=== PATIENT | female | born 1960 | race Caucasian/White ===

== ENCOUNTER → 2017-03-10 | Outpatient (CLI) | payer BC ==
[~2017-03-10] MED LIST: IBUP-1027 PO; IOHEXOL 180 MG/ML 10 ML VIAL. ONE; methylPREDNISolone ACETATE 40 MG/ML VIAL. ONE; methylPREDNISolone ACETATE 80 MG/ML VIAL. ONE
--- NOTE | 2017-03-10 16:22 | PAIN ---
DATE OF SERVICE: 03/10/2017 PROGRESS NOTE FOR PAIN CLINIC CHIEF COMPLAINT: Low back and right lower extremity pain. HISTORY OF PRESENT ILLNESS: The patient is a 56-year-old female who presents with history of pain since 07/2016, gradually increasing, not a result of any specific injury or action that she is aware of. She was getting better, but over the weekend in December, she stepped in a hole was full of water and eduardo her right leg significantly, she has had significant pain in the low back radiating to the posterior gluteus, posterior thigh, posterior calf and lateral and anterior thigh as well. Since that time the patient did do physical therapy, which made the pain worse. She tried some chiropractic treatment, which helped decrease the pain, but only to about 10%. The patient reports it is tingling with numbness and radiation in the area of the right leg. It is constant, burning, aching and cramping and also has some cold sensations in the right leg. Left leg is doing well, some minor tenderness in the gluteus, but not into the lower extremity. The patient reports numb toes on the left side from previous surgery. The patient reports it awakens her from sleep 2-3 times at night, does not affect her bowel or bladder control, but does affect her ability to walk as she goes ____ about 50 yards or so. The patient is not using any assistive devices to ambulate; however. The patient did have MRI scan of lumbar spine showing moderate multilevel lumbar facet arthrosis. No significant central stenosis, very mild neuroforaminal narrowing present at L5-S1 bilaterally. The patient rates her disability rating from 0-10, 10 being the worst as a 6 with family and home responsibilities and social activity, 9 with recreation, 4 with occupation, and 8 with life support activities. The patient is taking hydrocodone as well as ibuprofen, ibuprofen helps somewhat, but hydrocodone did not. The patient reports no loss of motor function, significant fatigability, however, with the right lower extremity with ambulation. PAST MEDICAL HISTORY: Significant for cataracts, ectopic , and arthritis. PREVIOUS SURGERY: Previous lumbar surgery in 2008. Other surgeries include and wisdom teeth extraction, and ectopic removal. CURRENT MEDICATIONS: Include [id number] ibuprofen 400 mg q.6 hours. ALLERGIES: The patient has no known drug allergies. FAMILY HISTORY: Significant for no major medical problems or conditions that she is aware of. SOCIAL HISTORY: The patient does not smoke, she does not use alcohol. 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 REVIEW OF SYSTEMS: The patient's review of systems is positive for those items mentioned in the history of present illness. It is complete, full. All systems reviewed and otherwise negative and is well documented on the patient's chart. PHYSICAL EXAMINATION: VITAL SIGNS: Today the patient's blood pressure is 144/87, pulse 62, respirations 16, temperature 97.9 degrees Fahrenheit, height is 5 feet 8 inches, and weight is 180 pounds. GENERAL: The patient is awake, alert, oriented, appropriate, very pleasant demeanor. HEENT: Head shows normocephalic, atraumatic. Extraocular movements are intact and symmetrical. Oral cavity shows mucous membranes are moist and pink. Dentition is intact. NECK: Shows anterior throat supple without palpable lymphadenopathy noted. Swallow reflex is symmetrical. Neck shows full rotational motion of cervical spine without tenderness or difficulty. CHEST: Shows normal on inspection. Breath sounds are clear to auscultation bilaterally. HEART: Shows S1 and S2 clear. ABDOMEN: Soft, nontender, and nondistended. No palpable organomegaly. No rebound or guarding demonstrated. BACK: Shows spine grossly in the midline. Normal appearing thoracic kyphosis, lumbar lordotic curvature. Very small surgical scars noted in the lumbar distribution to the left of midline, paraspinous musculature is symmetrical on inspection with palpation shows some very mild tenderness in the low lumbar distribution bilaterally, but without asymmetry, atrophy, or hypertrophy. No tenderness over the spinous processes, sacrum or sacroiliac regions. The patient shows good rotation and motion both laterally greater than 10 degrees right and left as well as extension greater than 10 degrees, forward flexion 45 degrees without pain reported. LOWER EXTREMITIES: Show deep tendon reflexes 2+ in the patella, 1+ tendo-calcaneus tendons are equal. Motor exam is strong with 5/5 dorsiflexion, extension, quadriceps, and hamstring flexion. Peripheral pulses are 2+ posterior tibial and dorsalis pedis pulses. No peripheral edema is noted. No clubbing, no cyanosis. Lower extremities are warm and dry to touch, equal in color and appearance. The patient's straight leg raise noted to be mildly positive on the right at about 40 degrees, decreased with knee flexion, left side is negative. Gaenslen's and Tyler's maneuvers are negative bilaterally. The patient is able to stand, stand on her toes without difficulty or loss of balance, walking with a normal appearing gait for short distance in the office, not using any assistive devices. IMPRESSION: 1. This is a 56-year-old female with approximate 6-month history of low back, right lower extremity pain, worse over the past 3 months. 2. MRI scan as noted. 3. History of arthritis. PLAN: Options were discussed with the patient including conservative medical management, physical therapy, interventional techniques and she has done physical therapy and chiropractic already with limited improvement with medications. We discussed a lumbar epidural steroid injection using description as well as anatomical models to describe the procedure. Risks were discussed including but not limited to bleeding, infection, possibility of epidural hematoma, and subsequent neurologic compromise, dural puncture, headaches, spinal cord and/or nerve damage, side effects of steroid medication, and poor results regarding pain control. The patient understands and wishes to proceed. The patient will return to clinic in approximately 2 weeks for followup. She was counseled on return appointment, activity level and side effects to be aware of. DIAGNOSES: Lumbar radiculopathy with lumbar spondylosis, degenerative disk disease and post-laminectomy syndrome. PROCEDURE: Lumbar epidural steroid injection in translaminar approach at L4-5 level using C-arm fluoroscopic guidance under sterile prep and drape using local anesthetic. Medication injected is a total of 120 mg Depo-Medrol plus 10 mL of preservative-free normal saline and 2 mL of Isovue for contrast. CONDITION AT DISCHARGE: Stable. The patient tolerated the procedure well and had no complications. JORGE PORTILLO MD DR: DARRYN/ghanshyam JOB#: [id number] / [id number]
== END | disposition home or self-care (01) ==
LOC: PNCL 08:06
PROVIDERS: ATTEND Anesthesiology
DX: M51.16 Intervertebral disc disorders with radiculopathy, lumbar region (principal); M47.26 Other spondylosis with radiculopathy, lumbar region; M96.1 Postlaminectomy syndrome, not elsewhere classified; M19.90 Unspecified osteoarthritis, unspecified site
CPT/HCPCS: 62323; J1030; J1040

== ENCOUNTER → 2017-03-25 | Outpatient (CLI) | payer BC ==
--- NOTE | 2017-03-25 09:59 | PAIN ---
DATE OF SERVICE: 03/25/2017 PROGRESS NOTE FOR PAIN CLINIC DIAGNOSES: Lumbar radiculopathy with lumbar spondylosis, degenerative disk disease and post-lumbar laminectomy syndrome. HISTORY OF PRESENT ILLNESS: The patient is a 56-year-old female who returns for followup status post lumbar epidural steroid injection x 1. The patient reports about 50% improvement after the first injection, still pain in low back and right lower extremity with some numbness in the right foot, also some numbness in the left foot, but much less severe. The patient reports the pain as 8 on a scale of 10 at its worst, currently 2, average is about 5. The patient reports a sharp, dull, tight, shooting, cramping, tingling, burning on and off pain, not completely present at all times. The patient reports it does awaken her from sleep. She sleeps up to 3-4 hours a night, has to reposition and she gets back to sleep after that. The patient reports no new motor or sensory deficits, no new bowel or bladder incontinence reported. PHYSICAL EXAMINATION: VITAL SIGNS: The patient's blood pressure is 139/85, pulse 63, respirations 18, temperature 98.2 degrees Fahrenheit, height is 5 feet 8 inches, weighs 180 pounds. GENERAL: The patient is awake, alert, oriented, appropriate, very pleasant demeanor. HEENT: Head shows normocephalic, atraumatic. Extraocular movements are intact and symmetrical. Oral cavity, mucous membranes are moist and pink. Dentition is intact. NECK: Shows anterior throat is supple without palpable lymphadenopathy noted. CHEST: Shows normal on inspection. Breath sounds are clear to auscultation bilaterally. HEART: Shows S1 and S2 clear. No murmurs auscultated. ABDOMEN: Soft, nontender, nondistended. No palpable organomegaly. No rebound or guarding demonstrated. BACK: Shows spine grossly midline, small well-healed surgical scar is noted in the lumbar distribution. Lumbar paraspinous musculature shows some moderate tenderness with palpation, but is symmetrical on inspection, only diffusely tender without radiation. Good rotational motion both laterally as well as extension and flexion. EXTREMITIES: Lower extremities showed deep tendon reflexes at 2+ in the patellar, 1+ tendo calcaneus tendons. Motor exam is strong with 5/5 dorsiflexion and extension bilaterally. Options were discussed with the patient and the patient's old chart was reviewed as her current medication regimen updated. Current review of systems updated today as well. We will proceed with a second lumbar epidural steroid injection with fluoroscopic guidance. Risks were again discussed including, but not limited to bleeding, infection, possibility of epidural hematoma, subsequent neurologic compromise, dural puncture, headaches, spinal cord and/or nerve damage, side effects of steroid medication and poor results regarding pain control. The patient understands and wishes to proceed. The patient will return to clinic in approximately 2 weeks for followup, was counseled on return appointment, activity level and side effects to be aware of. DIAGNOSIS: Lumbar radiculopathy with lumbar degenerative disk disease, post-lumbar laminectomy syndrome and lumbar spondylosis. PROCEDURE: Lumbar epidural steroid injection in translaminar approach at the L4-L5 level using C-arm fluoroscopic guidance under sterile prep and drape using local anesthetic. MEDICATION INJECTED: A total of 120 mg Depo-Medrol plus 10 mL of preservative-free normal saline and 2 mL of Isovue for contrast. CONDITION AT DISCHARGE: Stable. The patient tolerated procedure well, had no complications. JORGE PORTILLO MD DR: DARRYN/ghanshyam JOB#: [id number] / [id number]
== END | disposition home or self-care (01) ==
LOC: PNCL 07:51
PROVIDERS: ATTEND Anesthesiology
DX: M51.16 Intervertebral disc disorders with radiculopathy, lumbar region (principal); M47.26 Other spondylosis with radiculopathy, lumbar region; M96.1 Postlaminectomy syndrome, not elsewhere classified
CPT/HCPCS: 62323; J1030; J1040

== ENCOUNTER → 2017-05-07 | Outpatient (CLI) | payer BC ==
[~2017-05-07] MED LIST changes: +LIDOCAINE 2% VISCOUS 15 ML SOLUTION. ONE
--- NOTE | 2017-05-07 11:44 | PAIN ---
DATE OF SERVICE: 05/07/2017 DIAGNOSES: Lumbar radiculopathy with lumbar degenerative disk disease, spondylosis and post-lumbar laminectomy syndrome. HISTORY OF PRESENT ILLNESS: The patient is a 56-year-old female who returns for followup status post lumbar epidural steroid injection x 2. The patient reports about 60% improvement overall in the low back and right lower extremity pain, but still some pain in the right leg, worse with walking, lifting, bending and flexing. The patient reports it awakens her from sleep about 2-3 times at night. She needs to reposition to get back to sleep. The patient reports the pain is 8 on a scale of 10 at its worst, 6 on average The patient reports it as aching type, tingling, burning, cramping and constant, becoming more constant with time. The patient reports no new motor or sensory deficits, no new bowel or bladder incontinence, still worse with walking, standing, again lifting and bending and flexing at the waist. PHYSICAL EXAMINATION: VITAL SIGNS: The patient's blood pressure 118/77, pulse 61, respirations 16, temperature is 98.2 degrees Fahrenheit, height is 5 feet 8 inches, weight is 183 pounds. GENERAL: The patient is awake, alert, oriented, appropriate, very pleasant demeanor. HEENT: Head shows normocephalic, atraumatic. Extraocular movements are intact and symmetrical. Oral cavity: Mucous membranes moist and pink. NECK: Shows anterior throat supple without palpable lymphadenopathy noted. Swallow reflex is symmetrical. CHEST: Shows normal on inspection. Breath sounds are clear to auscultation bilaterally. HEART: Shows S1 and S2 clear. No murmurs are auscultated. ABDOMEN: Soft, nontender, nondistended. BACK: Shows spine grossly in the midline. Small well-healed surgical scars noted in the lumbar distribution, but with essentially normal lumbar lordotic curvature and lumbar paraspinous musculature shows symmetrical on inspection, with palpation shows some moderate tenderness to palpation, but only diffusely bilaterally in the lower lumbar distribution without radiation. The patient shows good rotational motion both laterally as well as extension and flexion of lumbar spine without difficulty. EXTREMITIES: Lower extremities showed deep tendon reflexes 2+ in the patellar, 1+ tendo-calcaneus tendons, equal. Motor exam is strong with 5/5 dorsiflexion, extension, quadriceps and hamstring flexion and symmetrical. Peripheral pulses are 1+ posterior tibial and dorsalis pedis pulses. No peripheral edema is noted bilaterally. Options were discussed with the patient, and the patient's old chart was reviewed as her current medication regimen updated. Current review of systems updated today as well. We will proceed with a third in the series of lumbar epidural steroid injection with fluoroscopic guidance. Risks were again discussed including, but not limited to bleeding, infection, possibility of epidural hematoma and subsequent neurological compromise, dural puncture, headaches, spinal cord and/or nerve damage, side effects of steroid medication and poor results regarding pain control. The patient understands and wishes to proceed. The patient will return to clinic in approximately 2 weeks for followup or as needed. This will be the third injection in a series of 3. We will have her follow up with her neurosurgeon as well as she requested prior to her first injection. The patient was counseled as to activity levels as well as side effects to be aware of, will increase activity as tolerated. DIAGNOSES: Lumbar radiculopathy with lumbar degenerative disk disease, spondylosis, post-lumbar laminectomy syndrome. PROCEDURES: Lumbar epidural steroid injection in translaminar approach at L4-L5 level using C-arm fluoroscopic guidance under sterile prep and drape using local anesthetic. MEDICATION INJECTED: A total of 120 mg Depo-Medrol, plus 10 mL of preservative-free normal saline and 2 mL of Isovue for contrast. CONDITION AT DISCHARGE: Stable. The patient tolerated procedure well, had no complications. JORGE PORTILLO MD DR: DARRYN/ghanshyam JOB#: [id number] / [id number]
== END | disposition home or self-care (01) ==
LOC: PNCL 08:24
PROVIDERS: ATTEND Anesthesiology
DX: M51.16 Intervertebral disc disorders with radiculopathy, lumbar region (principal); M47.26 Other spondylosis with radiculopathy, lumbar region
CPT/HCPCS: 62323; J1030; J1040

== ENCOUNTER → 2017-06-20 | Outpatient (CLI) | payer BC ==
[~2017-06-20] MED LIST changes: -IOHEXOL 180 MG/ML 10 ML VIAL. ONE; -LIDOCAINE 2% VISCOUS 15 ML SOLUTION. ONE; +METH-38 PO; +METH4TAB2 PO; +OXYC-323 PO; +SENN1TAB7 PO; -methylPREDNISolone ACETATE 40 MG/ML VIAL. ONE; -methylPREDNISolone ACETATE 80 MG/ML VIAL. ONE
== END | disposition home or self-care (01) ==
LOC: SURGPAT 12:43
PROVIDERS: ATTEND Neurological Surgery
DX: Z01.818 Encounter for other preprocedural examination (principal)
CPT/HCPCS: 36415; 87641

== ENCOUNTER 2017-06-24 09:13 | Observation (INO) | payer BC ==
[~2017-06-24] VITALS: Ht 172.7 cm; Wt 83.0 kg
[2017-06-24] VITALS (9 sets, daily range): BP systolic 104–122; BP diastolic 57–82
[~2017-06-24 09:13] MED LIST changes: +BUPIVACAINE MPF 0.5% 30 ML VIAL. ONE; +GELATIN SPONGE SIZE 100. ONE; +IV RINGERS,LACTATED 1000ML 1,000 ML IV SCH; +LIDOCAINE 1% PF 2 ML VIAL. ID PRN; +LIDOCAINE 1%/EPI 1:100,000 20 ML VIAL. ONE; -METH-38 PO; -METH4TAB2 PO; +ONDANSETRON PF 4 MG/2 ML VIAL. IV PRN; -OXYC-323 PO; +PROCHLORPERAZINE 10 MG/2 ML VIAL. IV PRN; -SENN1TAB7 PO; +THROMBIN TOPICAL 20,000 UNIT SPRAY.SYRN KIT TP ONE; +fentaNYL PF VIAL 100 MCG/2 ML VIAL IV PRN
[2017-06-24] MEDS ORDERED: ceFAZolin 2GM PREMIX 2 GM/50 ML BAG IV ONE (10:00)
[2017-06-24] MEDS ORDERED: DESFLURANE > 120 MINUTES IH ONE ×2 (10:09→13:33)
[2017-06-24] MEDS ORDERED: PROPOFOL 100 ML IV ONE (10:11)
[2017-06-24] MEDS ORDERED: fentaNYL PF VIAL 100 MCG/2 ML VIAL ONE (10:15)
[2017-06-24] MEDS ORDERED: REMIFENTANIL 2 MG VIAL. IV ONE (10:15)
[2017-06-24] MEDS ORDERED: NEOSTIGMINE 10 MG/10 ML VIAL. ONE (10:15)
[2017-06-24] MEDS ORDERED: DEXAMETHASONE SOD PHOS 20 MG/5 ML VIAL. ONE (10:16)
[2017-06-24] MEDS ORDERED: PROPOFOL 20 ML IV ONE (10:16)
[2017-06-24] MEDS ORDERED: ONDANSETRON PF 4 MG/2 ML VIAL. ONE (10:16)
[2017-06-24] MEDS ORDERED: ROCURONIUM 50 MG/5 ML VIAL. ONE (10:16)
[2017-06-24] MEDS ORDERED: 0.9 % SODIUM CHLORIDE 50 ML VIAL. IJ ONE (10:16)
[2017-06-24] MEDS ORDERED: LIDOCAINE 2% PF Vial for OR 5 ML VIAL. ONE (10:16)
[2017-06-24] MEDS ORDERED: GLYCOPYRROLATE 1 MG/5 ML VIAL. ONE (10:16)
[2017-06-24] MEDS ORDERED: MIDAZOLAM HCL/PF 2 MG/2 ML VIAL. ONE (10:31)
[2017-06-24] MEDS: BACITRACIN 50,000 UNIT in IV NORMAL SALINE 1000ML BAG 1,000 ML IRR ONE ×2 (11:43→12:01)
[2017-06-24] MEDS ORDERED: PHENYLEPHRINE in 0.9% NACL PF 1 MG/10 ML DISP.SYRIN. IV ONE (12:02)
[2017-06-24] MEDS ORDERED: PHENYLEPHRINE 10 MG/ML VIAL. ONE (12:02)
[2017-06-24] MEDS ORDERED: SEVOFLURANE > 120 MINUTES. IH ONE (13:33)
[2017-06-24] MEDS ORDERED: DESFLURANE 61 TO 120 MINUTES IH ONE (13:37)
--- NOTE | 2017-06-24 14:02 | PDOC ---
BRIEF OPERATIVE NOTE Date: Jun 24, 2017 Pre-Op Diagnosis lumbar radiculopathy, lumbar disk herniation, lumbar spondylosis Post-Op Diagnosis same Surgeon [facility] Scientist none Anesthesia Type: General Blood Loss 25mL Specimens Obtained disk and decompression Findings stenosis, partially calcified disk herniation L5-S1, neuromonitoring remained at least baseline throughout the procedure Complications none apparent GRAHAM PICHARDO MD Jun 24, 2017 14:02
--- NOTE | 2017-06-24 14:04 | DISCH ---
DISCHARGE INSTRUCTIONS Condition on Discharge Condition on Discharge: Stable Activity After Discharge Activity Instructions for Disc: Avoid exertion, Progressive ambulation, Other, see below (avoid strenuous activity, no lifting over 10 lbs, avoid excess twisting or bending) Lifting Instructions after Dis: Do not lift >10 pounds Wound Incision Care Wound/Incision Care: Ice to area for comfort, Other, see below (keep incision clean and dry; no not soak, scrub, or submerge; may remove dressing day 3 after surgery) Contacting the after DC Call your doctor for: If your condition worsens Follow-Up Follow up with: Dr. Pichardo in two weeks [phone] GRAHAM PICHARDO MD Jun 24, 2017 14:04
[2017-06-24] MEDS: fentaNYL PF VIAL 100 MCG/2 ML VIAL IV PRN ×4 (14:09→16:20)
[2017-06-24] MEDS: MORPHINE SULFATE 2 MG/ML DISP.SYRIN. IV PRN ×4 (14:23→15:10)
[2017-06-24] MEDS ORDERED: OXYC-323 PO ×2 (14:26)
[2017-06-24] MEDS ORDERED: METH-38 PO (14:26)
[2017-06-24] MEDS ORDERED: SENN1TAB7 PO (14:27)
[2017-06-24] MEDS ORDERED: oxyCODONE/APAP 5/325 1 TAB TABLET PO PRN ×2 (14:45→16:30)
[2017-06-24] MEDS ORDERED: MORPHINE SULFATE 2 MG/ML DISP.SYRIN. ONE (14:56)
[2017-06-24] MEDS ORDERED: diphenhydrAMINE 50 MG/ML VIAL IV PRN (16:30)
[2017-06-24] MEDS ORDERED: ZOLPIDEM 5 MG TABLET. PO PRN (16:30)
[2017-06-24] MEDS ORDERED: ONDANSETRON PF 4 MG/2 ML VIAL. IV PRN (16:30)
[2017-06-24] MEDS ORDERED: CALCIUM CARBONATE 500 MG TAB.CHEW PO PRN (16:30)
[2017-06-24] MEDS ORDERED: 0.9 % SODIUM CHLORIDE 10 ML DISP.SYRIN. IV PRN (16:30)
[2017-06-24] MEDS ORDERED: NALOXONE 0.4 MG/ML VIAL. IV PRN (16:30)
[2017-06-24] MEDS ORDERED: diphenhydrAMINE HCL 25 MG CAPSULE PO PRN (16:30)
[2017-06-24] MEDS ORDERED: MAGNESIUM HYDROXIDE 2,400 MG/30 ML ORAL.SUSP. PO PRN (16:30)
[2017-06-24] MEDS ORDERED: ACETAMINOPHEN 325 MG TABLET. PO PRN (16:30)
[2017-06-24] MEDS ORDERED: MAG HYDROX/ALUMINUM HYD/SIMETH 30 ML ORAL.SUSP PO PRN (16:30)
[2017-06-24] MEDS: HYDROmorphone 2 MG/ML VIAL IV PRN ×4 (16:42→17:24)
[2017-06-24] MEDS ORDERED: fentaNYL PF VIAL 100 MCG/2 ML VIAL IV PRN ×2 (16:45)
[2017-06-24] MEDS ORDERED: CALCIUM CARB/VIT D3 500/200 TABLET. PO SCH (17:00)
[2017-06-24] MEDS ORDERED: FERROUS SULFATE 325 MG TABLET. PO SCH (17:00)
[2017-06-24] MEDS: SENNOSIDES/DOCUSATE 8.6/50MG TABLET. PO SCH (21:00)
[2017-06-24] MEDS: METHOCARBAMOL 750 MG TABLET PO SCH (23:11)
[2017-06-24] MEDS: DOCUSATE SODIUM 100 MG CAPSULE. PO SCH (23:11)
[2017-06-24] MEDS: DEXAMETHASONE SOD PHOS 4 MG/ML VIAL PO SCH (23:12)
[2017-06-24] MEDS: oxyCODONE/APAP 5/325 1 TAB TABLET PO PRN (23:12)
[2017-06-25 03:00] VITALS: BP 114/62
[2017-06-25] MEDS: DEXAMETHASONE SOD PHOS 4 MG/ML VIAL PO SCH ×3 (06:39→11:44)
[2017-06-25 06:42] VITALS: BP 128/70
--- NOTE | 2017-06-25 08:24 | PDOC ---
SUBJECTIVE Subjective Reports leg pain improving. Ambulating without significant problem. OBJECTIVE Vital Signs Vital Signs Date Time Temp Pulse Resp B/P (MAP) Pulse Ox O2 Delivery O2 Flow Rate FiO2 06/25/17 06:42 97.8 64 20 128/70 (89) 97 Nasal Cannula 97.8 06/25/17 03:00 97.4 61 20 114/62 (79) 96 Nasal Cannula 97.4 06/25/17 00:15 20 06/24/17 23:12 20 Nasal Cannula 2.0 06/24/17 23:00 97.4 73 18 110/63 (79) 97 Nasal Cannula 2.0 97.4 06/24/17 22:30 97.0 49 16 104/58 (73) 99 Nasal Cannula 2.0 97.0 06/24/17 20:30 97.5 46 16 113/59 (77) 98 Nasal Cannula 2.0 97.5 06/24/17 20:21 Nasal Cannula 2.0 06/24/17 19:59 97.3 44 16 96 Nasal Cannula 2.0 97.3 06/24/17 19:30 96.7 47 20 115/61 (79) 98 Nasal Cannula 96.7 06/24/17 19:00 96.7 45 18 122/65 (84) 92 Room Air 96.7 06/24/17 18:30 97.3 66 20 115/58 (77) 97 Nasal Cannula 2.0 97.3 06/24/17 18:25 Nasal Cannula 2.0 06/24/17 18:15 71 110/57 (74) 06/24/17 18:00 70 108/61 (77) 06/24/17 17:45 97.4 73 18 106/82 (90) 97 Nasal Cannula 2.0 97.4 06/24/17 16:55 16 94 Nasal Cannula 2.0 06/24/17 16:42 16 96 Room Air 06/24/17 16:15 95 06/24/17 15:43 94 06/24/17 15:41 98.4 60 18 142/71 100 Room Air 98.4 06/24/17 15:12 52 16 133/71 100 Room Air 06/24/17 14:57 97.6 64 17 140/72 95 Room Air 97.6 06/24/17 14:48 16 97 Room Air 06/24/17 14:42 68 16 128/78 93 Room Air 06/24/17 14:32 16 98 Room Air 06/24/17 14:27 66 16 121/69 92 Room Air 06/24/17 14:23 18 96 Room Air 06/24/17 14:15 16 100 Simple Mask 10.0 06/24/17 14:12 68 16 132/69 100 Simple Mask 10 06/24/17 14:09 18 99 Simple Mask 10.0 06/24/17 13:57 Mask 10 06/24/17 13:57 97.8 90 18 142/67 99 Simple Mask 10 97.8 06/24/17 09:38 97.3 69 18 148/88 99 Room Air 97.3 I & O Intake and Output 06/25/17 07:00 Intake Total 2350 ml Output Total 225 ml Balance 2125 ml Intake Oral 850 ml IV Total 1000 ml Blood Product IV Normal Saline Flush 500 ml Output Urine Total 200 ml Estimated Blood Loss 25 ml # Voids 3 PHYSICAL EXAM Physical Exam AAOx4, NAD, [place] 5/5, sensation intact LT, dressing with scant shadowing, flat and dry ASSESSMENT/PLAN Assessment/Plan POD 1 L5-S1 hemilaminotomy with discectomy -continues to recover well overall -d/c home today Problems: GRAHAM PICHARDO MD Jun 25, 2017 08:24
[2017-06-25] MEDS: METHOCARBAMOL 750 MG TABLET PO SCH (08:31)
[2017-06-25] MEDS: SENNOSIDES/DOCUSATE 8.6/50MG TABLET. PO SCH (08:31)
[2017-06-25] MEDS: DOCUSATE SODIUM 100 MG CAPSULE. PO SCH (08:31)
[2017-06-25] MEDS: oxyCODONE/APAP 5/325 1 TAB TABLET PO PRN (08:32)
[2017-06-25] MEDS ORDERED: MULTIVITAMIN with MINERAL TABLET. PO SCH (09:00)
[2017-06-25] MEDS ORDERED: METH4TAB2 PO (09:56)
[2017-06-25 11:15] VITALS: BP 122/68
--- NOTE | 2017-06-27 14:57 | PATHOLOGY ---
PATHOLOGY REPORT * * * * * * * * FINAL DIAGNOSIS: Segments of fibrocartilaginous tissue and bone, lumbar disc and decompression: - Degenerative changes of fibrocartilaginous tissue. COMMENT: There is no evidence of an acute inflammatory process or malignancy. (JPM:db; 06/27/2017) REPORT ELECTRONICALLY SIGNED BY: Oj Luo M.D. DATE/TIME: 06/27/2017 14:57 * * * * * * * * GROSS PATHOLOGY: Received in formalin labeled "Daily [place], lumbar disc and decompression," are multiple segments of becker-white, rubbery and gritty tissue measuring 4.1 x 1.8 x 0.5 cm in aggregate dimensions admixed calcified tissue. The tissue is submitted representatively in cassette A1. (SDY; 06/25/2017) INITIAL CPT CODE(S): A; 90416 Professional services performed [place] [facility] [place] [address] Technical services performed by [facility] at [address] [place] [address], [facility] [address] [address]. SPECIMEN(S) RECEIVED: A.Lumbar disc and decompression CLINICAL HISTORY: Lumbar spondylosis, radiculopathy PATIENT: DAILY HERMOSILLO /AGE: 209/06/1960 (Age: 56) PATIENT #: [id number] ALT CASE #: SPECIMEN COLLECTION DATE: 06/24/2017 SPECIMEN RECEIVED DATE: 06/24/2017 [facility] - [address] [place] [address] - PHONE: [phone] * * * END OF REPORT * * *
--- NOTE | 2017-07-01 10:36 | OP ---
DATE OF SURGERY: 06/24/2017 SURGEON: Chapincito Pichardo M.D. FINE ARTS TEACHER: None. PREOPERATIVE DIAGNOSES: Lumbar spondylosis, lumbar radiculopathy, and lumbar disk herniation. POSTOPERATIVE DIAGNOSES: Lumbar spondylosis, lumbar radiculopathy, and lumbar disk herniation. PROCEDURE: Right L5-S1 hemilaminotomy with discectomy utilizing intraoperative neuromonitoring and intraoperative use of microscope. ANESTHESIA: General. COMPLICATIONS: None intraprocedurally. INDICATIONS FOR THE PROCEDURE: The patient is a 56-year-old female who presented to clinic with low back and right lower extremity pain that had been present for several months but worsened last couple of months prior to presentation. She is refractory to multiple nonsurgical treatments, and it was noted that she had a peripherally calcified protrusion at L5-S1 contacting the traversing nerve root. It was felt that a potential surgical decompression may be of benefit. Please refer to the patient chart for additional detail. DESCRIPTION OF PROCEDURE: After informed consent was obtained, the patient was brought into the operating room. She was placed under general anesthesia. She was placed in the prone position on the Morris frame. All pressure points were checked and padded appropriately. Neuromonitoring was instituted and baseline potentials were obtained. An appropriate incision location was localized with fluoroscopy and after the lumbar region was prepped and draped in usual sterile fashion, a vertical incision centered over the region of lumbar 5 and sacral 1 was made with a 10 blade scalpel. Monopolar electrocautery was utilized to dissect the avascular midline to the spinous processes at lumbar 5 and sacral 1 and dissection was carried rightward across the lamina at this location. Level was again verified with fluoroscopy prior to the initiation of decompression. A right lumbar 5 and sacral 1 hemilaminotomy was performed with a pneumatic drill as well as Kerrison rongeur. The underlying ligament was gently dissected free from the neural elements with a blunt nerve hook and a Costilla and removed with Kerrison rongeur. The thecal sac was gently retracted medially and a prominent annulus was identified. The annulus was incised with an 11 blade scalpel. Disk material was removed in a piecemeal fashion with a pituitary rongeur and additional disk material was gently teased posterolaterally with a blunt nerve hook and removed with the pituitary rongeur. Upon completion of decompression, the neural elements and the adjacent nerve were noted to be very well decompressed. This was verified with direct visualization as well as gentle palpation with a Costilla and a blunt nerve hook. The wound was generously irrigated with antibiotic irrigation prior to the final closure. Pristine hemostasis was achieved with FloSeal, cottonoids, and some use of bipolar electrocautery. The muscles and fascia were reapproximated with 0 Vicryl in a simple interrupted fashion. Subcutaneous tissues were reapproximated with 2-0 Vicryl in an interrupted inverted fashion. Skin was reapproximated with 4-0 Vicryl in a running subcuticular fashion. Mastisol and Steri-Strips were applied and the wound was dressed with Telfa and Tegaderm. All counts were correct x 2. At the end of the procedure, the patient was extubated in the operating room and taken to recovery in stable condition. There were no intraprocedural complications apparent. Neuromonitoring remained at least baseline throughout the duration of the procedure. CHAPINCITO PICHARDO MD DR: SHASTA/ghanshyam JOB#: [id number] / [id number] LILLI
== END 2017-06-25 12:00 | disposition home or self-care (01) ==
LOC: SURG 09:13 → 4 SOUTHEST 16:31
PROVIDERS: ADMIT Neurological Surgery; ATTEND Neurological Surgery
DX: M47.26 Other spondylosis with radiculopathy, lumbar region (principal); M51.26 Other intervertebral disc displacement, lumbar region
CPT/HCPCS: 63030; 76000; 88304; 97116; 97162; 97530; G0378; G0379; G8978; G8979; J0690; J1100; J2250; J2370; J2405; J2704; J2710; J3010; J3490; J7030; J7120; J2001